=== PATIENT | male | born 1975 | race Caucasian/White ===

== ENCOUNTER 2017-11-05 08:34 | Emergency (ER) | payer OTHER ==
[~2017-11-05] VITALS: Ht 172.7 cm; Wt 72.0 kg
[~2017-11-05 08:34] MED LIST: DICY1TAB26 PO; PROM25TA5 PO
[2017-11-05 08:36] VITALS: BP 143/93; PULSE 58; RESP 18; TEMP 98.3; O2SAT 100
[2017-11-05] MEDS ORDERED: SODIUM CHLOR 0.9% 1000 ML INJ 1,000 ML IV ONE ×2 (08:45)
[2017-11-05] MEDS ORDERED: ONDANSETRON HCL 4 MG/2 ML VIAL IV PUSH ONE (08:45)
[2017-11-05] MEDS ORDERED: PANTOPRAZOLE SODIUM 40 MG VIAL IV PUSH ONE (08:45)
--- NOTE | 2017-11-05 08:59 | PD ---
HPI Chief Complaint: Abdominal Pain Time Seen by Provider: 08:45 Travel History International Travel<30 days: No Contact w/Intl Traveler<30days: No Traveled to known affect area: No History of Present Illness HPI This 42-year-old male is complaining of abdominal pain and vomiting. He says the symptoms started yesterday in the afternoon of been going on since then. He says he has had trouble like this before. Review of chart shows a visit about 6 months ago for similar symptoms. He had a negative CT scan at that time. He is not on any medications. He is not aware of anything that triggered it. He denies alcohol or anti-inflammatory medications. He admits to marijuana use and hot showers. PFSH Past Medical History Diminished Hearing: No GERD: Yes Tetanus Vaccination: < 5 Years Influenza Vaccination: No Social History Alcohol Use: Yes (occas. beer) Tobacco Use: Yes (1 ppd) Substance Use: Yes (Marijuana ) Allergies-Medications (Allergen,Severity, Reaction): Coded Allergies: No Known Allergies (Unverified Adverse Reaction, Unknown, 11/05/17) Reported Meds & Prescriptions Reported Meds & Active Scripts Active Zofran Odt (Ondansetron Odt) 4 Mg Tab 4 Mg SL Q6HR PRN Review of Systems General / Constitutional: No: Fever, Chills Eyes: No: Diploplia, Blurred Vision HENT: No: Headaches, Vertigo Cardiovascular: No: Chest Pain or Discomfort, Palpitations Respiratory: No: Cough, Shortness of Breath Gastrointestinal: Positive: Nausea, Vomiting, Abdominal Pain, No: Diarrhea Genitourinary: No: Frequency, Dysuria Musculoskeletal: No: Myalgias, Arthralgias Skin: No Rash, No Itching Neurologic: No: Weakness Physical Exam Narrative GENERAL: Well-developed male SKIN: Focused skin assessment warm/dry. HEAD: Atraumatic. Normocephalic. EYES: Pupils equal and round. No scleral icterus. No injection or drainage. ENT: No nasal bleeding or discharge. Mucous membranes pink and moist. NECK: Trachea midline. No JVD. CARDIOVASCULAR: Regular rate and rhythm. No murmur appreciated. RESPIRATORY: No accessory muscle use. Clear to auscultation. Breath sounds equal bilaterally. GASTROINTESTINAL: Abdomen soft, there is epigastric tenderness, nondistended. Hepatic and splenic margins not palpable. MUSCULOSKELETAL: No obvious deformities. No clubbing. No cyanosis. No edema. NEUROLOGICAL: Awake and alert. No obvious cranial nerve deficits. Motor grossly within normal limits. Normal speech. PSYCHIATRIC: Appropriate mood and affect; insight and judgment normal. Data Data Last Documented VS Vital Signs Date Time Temp Pulse Resp B/P (MAP) Pulse Ox O2 Delivery O2 Flow Rate FiO2 11/05/17 08:36 98.3 58 18 143/93 (110) 100 Orders Orders Complete Blood Count With Diff (11/05/17 08:45) Comprehensive Metabolic Panel (11/05/17 08:45) Lipase (11/05/17 08:45) Sodium Chlor 0.9% 1000 Ml Inj (Ns 1000 M (11/05/17 08:45) Sodium Chlor 0.9% 1000 Ml Inj (Ns 1000 M (11/05/17 08:45) Ondansetron Inj (Zofran Inj) (11/05/17 08:45) Pantoprazole Inj (Protonix Inj) (11/05/17 08:45) Chlorpromazine Inj (Thorazine Inj) (11/05/17 09:30) Hydromorphone Pf Inj (Dilaudid Pf Inj) (11/05/17 09:30) Labs Laboratory Tests Test 11/05/17 09:00 White Blood Count 10.1 TH/MM3 Red Blood Count 4.72 MIL/MM3 Hemoglobin 14.3 GM/DL Hematocrit 43.3 % Mean Corpuscular Volume 91.8 FL Mean Corpuscular Hemoglobin 30.2 PG Mean Corpuscular Hemoglobin Concent 32.9 % Red Cell Distribution Width 11.9 % Platelet Count 359 TH/MM3 Mean Platelet Volume 7.5 FL Neutrophils (%) (Auto) 88.6 % Lymphocytes (%) (Auto) 9.1 % Monocytes (%) (Auto) 2.1 % Eosinophils (%) (Auto) 0.0 % Basophils (%) (Auto) 0.2 % Neutrophils # (Auto) 9.0 TH/MM3 Lymphocytes # (Auto) 0.9 TH/MM3 Monocytes # (Auto) 0.2 TH/MM3 Eosinophils # (Auto) 0.0 TH/MM3 Basophils # (Auto) 0.0 TH/MM3 CBC Comment DIFF FINAL Differential Comment Blood Urea Nitrogen 12 MG/DL Creatinine 0.83 MG/DL Random Glucose 146 MG/DL Total Protein 7.6 GM/DL Albumin 3.8 GM/DL Calcium Level 9.6 MG/DL Alkaline Phosphatase 80 U/L Aspartate Amino Transf (AST/SGOT) 24 U/L Alanine Aminotransferase (ALT/SGPT) 27 U/L Total Bilirubin 0.4 MG/DL Sodium Level 137 MEQ/L Potassium Level 3.3 MEQ/L Chloride Level 97 MEQ/L Carbon Dioxide Level 29.4 MEQ/L Anion Gap 11 MEQ/L Estimat Glomerular Filtration Rate 101 ML/MIN Lipase 139 U/L [facility] Medical Decision Making Medical Screen Exam Complete: Yes Emergency Medical Condition: Yes Medical Record Reviewed: Yes Differential Diagnosis Differential includes acute gastritis, cyclic vomiting, gastroparesis Narrative Course Patient has risk factors for cyclic vomiting syndrome. He had a normal CT scan done 6 months ago; . He has been given fluids and Zofran. He had a bout of hiccups which was treated with Thorazine. He is feeling better and is stable for discharge. I have spoken to about the possible etiology of his symptoms Diagnosis Primary Impression: Cyclic vomiting syndrome Scripts Ondansetron Odt (Zofran Odt) 4 Mg Tab 4 MG SL Q6HR Y for Nausea/Vomiting, #15 TAB 0 Refills Prov: Get Bledsoe MD 11/05/17 Disposition: 01 DISCHARGE HOME Condition: Stable Get Bledsoe MD Nov 05, 2017 08:59
[2017-11-05 09:19] LABS: BASOPHIL % 0.2 % (0.0-2.0); HEMATOCRIT 43.3 % (39.0-51.0); HEMOGLOBIN 14.3 GM/DL (13.0-17.0); LYMPH % 9.1 % (9.0-44.0); LYMPHOCYTE # 0.9 TH/MM3 (1.0-4.8); MEAN CELL VOLUME 91.8 FL (80.0-100.0); MEAN CORPUSCULAR HEMOGLOBIN 30.2 PG (27.0-34.0); MEAN CORPUSCULAR HGB CONC 32.9 % (32.0-36.0); MEAN PLATELET VOLUME 7.5 FL (7.0-11.0); MONO % 2.1 % (0.0-8.0); MONOCYTE # 0.2 TH/MM3 (0-0.9); NEUT % 88.6 % (16.0-70.0); PLATELET COUNT 359 TH/MM3 (150-450); RED BLOOD COUNT 4.72 MIL/MM3 (4.50-5.90); RED CELL DISTRIBUTION WIDTH 11.9 % (11.6-17.2); WHITE BLOOD COUNT 10.1 TH/MM3 (4.0-11.0)
[2017-11-05] MEDS ORDERED: HYDROmorphone HCL PF 2 MG/ML VIAL IV PUSH ONE (09:30)
[2017-11-05 09:48] LABS: CALCIUM 9.6 MG/DL (8.5-10.1)
[2017-11-05 09:49] LABS: ALBUMIN 3.8 GM/DL (3.4-5.0); BICARBONATE 29.4 MEQ/L (21.0-32.0); GLUCOSE,RANDOM 146 MG/DL (74-106); LIPASE 139 U/L (73-393)
[2017-11-05 09:52] LABS: ALT (GPT) 27 U/L (12-78); CREATININE 0.83 MG/DL (0.60-1.30); GLOMERULAR FILTRATION RATE 101 ML/MIN (>89)
[2017-11-05] MEDS ORDERED: ZOFR4TAB3 SL (09:52)
[2017-11-05 09:53] LABS: TOTAL BILIRUBIN ADULT 0.4 MG/DL (0.2-1.0); TOTAL PROTEIN 7.6 GM/DL (6.4-8.2)
[2017-11-05 09:55] LABS: ALKALINE PHOSPHATASE 80 U/L (45-117)
[2017-11-05 09:56] LABS: CHLORIDE 97 MEQ/L (98-107); SODIUM (NA) 137 MEQ/L (136-145)
[2017-11-05 10:02] LABS: BLOOD UREA NITROGEN 12 MG/DL (7-18)
[2017-11-05 10:03] LABS: AST (GOT) 24 U/L (15-37)
[2017-11-05 10:36] VITALS: RESP 16
[2017-11-05 10:50] VITALS: BP 135/83
== END 2017-11-05 10:53 | disposition home or self-care (01) ==
LOC: PHED 08:34
DX: G43.A0 Cyclical vomiting, in migraine, not intractable (principal); R10.9 Unspecified abdominal pain; Z72.0 Tobacco use; F12.90 Cannabis use, unspecified, uncomplicated
CPT/HCPCS: 80053; 83690; 85025; 96361; 96372; 96374; 96375; 99284; C9113; J1170; J2405; J3230; J7030